=== PATIENT | male | born 1960 | race Caucasian/White ===

== ENCOUNTER 2017-01-25 08:57 | Emergency (ER) | payer MEDICARE ==
--- NOTE | 2017-01-25 09:28 | ERNOTE ---
Head Injury HPI - Narrative Date of Service: 01/25/17 - General Time Seen by Provider: 01/25/17 09:13 Exam Limitations: no limitations - Immun/Allergies/Home Medications Immunization: IMMUNIZATION HX Immunizations Up to Date Yes History of Influenza Vaccine Yes Hx Pneumococcal Vaccination Yes Allergies/Adverse Reactions: Allergies Allergy/AdvReac Type Severity Reaction Status Date / Time latex Allergy Intermediate ANGIOEDEMA Verified 01/25/17 09:06 Penicillins Allergy Mild HIVES, RASH Verified 01/25/17 09:06 Home Medications: HOME MEDICATIONS ALPRAZolam [Xanax] 1 mg PO TID PRN 06/25/12 [Last Taken Unknown] Losartan/Hydrochlorothiazide [Hyzaar 50-12.5 Tablet] 1 each PO DAILY 01/03/15 [ Last Taken 06/05/15 09:00] Omeprazole [Prilosec] 40 mg PO BID 01/03/15 [Last Taken Unknown] Levothyroxine Sodium [Synthroid] 25 mcg PO DAILY 05/30/15 [Last Taken Unknown] Levothyroxine Sodium [Synthroid] 200 mcg PO DAILY 05/30/15 [Last Taken Unknown] PARoxetine HCL [Paxil] 20 mg PO DAILY 05/30/15 [Last Taken Unknown] Baclofen 10 mg PO PRN 04/22/16 [Last Taken Unknown] Atorvastatin Calcium [Lipitor] 40 mg PO HS 01/25/17 [Last Taken Unknown] Ipratropium/Albuterol Sulfate [Iprat-Albut 0.5-3(2.5) mg/3 ml] 3 ml IH TID 01/25 [Last Taken Unknown] - History of Present Illness Narrative: 56-year-old white male presents with swelling on the right side of his neck. 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 I do not have access to those records. He had a reconstructive surgery with a flap on the right side of his trach. Family did take an muscle from his right shoulder region. The surgical scars are all clean dry and intact. This was all proximal 2 years ago. He states he's had swelling to different times in the past couple years it was exactly like this. His associate was some slight pain. No systemic signs of illness. No fever chills. No difficulty swallowing. No difficulty breathing. No drainage. No erythema. Review of Systems - Review of Systems Constitutional: Present: no symptoms reported. Absent: fever, weakness, fatigue , malaise EYE: Present: no symptoms reported ENT: Present: See HPI. Absent: throat swelling Respiratory: Present: no symptoms reported Cardiology: Present: no symptoms reported Genitourinary: Present: no symptoms reported Musculoskeletal: Present: no symptoms reported Skin: Present: no symptoms reported Neurological: Present: no symptoms reported Hematologic/Lymphatic: Present: no symptoms reported All Other Systems: All systems neg except as marked - Patient's Past Medical History Patient History - Medical: Anxiety, Chronic Pain, GERD, Hypothyroidism, Kidney stone, Other Patient History - Cardiac/Respiratory: Hypertension, Hyperlipidemia Patient History - Cancer: Throat, Surgical Treatment Patient History - Surgical Procedures: Back Surgery, Cancer Surgery, Other Patient History - Other: None - Family History Mother Family History - Medical: Diabetes Type 2 Father Family History - Cardiac/Respiratory: Myocardial Infarction - Social History Living Situations: home Abuse History: No History of abuse Psych History: Hx of Anxiety, Hx of Depression, Current tx/ever been on anti- depressants or anti-anxiety meds Smoking Status: Former smoker Alcohol Use: none Drug Use: none - Immunizations Immunizations Up to Date: Yes Hx Pneumococcal Vaccination: Yes History of Influenza Vaccine: Yes Physical Exam - Physical Exam General Appearance: Present: wd/wn, alert, no apparent distress Head Exam: Present: normal inspection, no evidence of injury Neck: Present: supple, full range of motion, other - there is a tracheostomy. There is the flap and reconstructive component of the tracheostomy on the right side. No erythema. No drainage. There is some edema and there is some slight tenderness. I have not seen this patient before. 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 - Vital Signs Patient's Vital Signs:: I have reviewed the patient's vital signs. Vital Signs: Vital Signs 01/25/17 09:01 Temperature 37.1 C Pulse Rate 87 Respiratory 14 Rate Blood Pressure 144/96 O2 Sat by Pulse 96 Oximetry - CT/Ultrasound CT/Ultrasound Narrative: Results of CT neck with IV contrast were reviewed from radiologist reading - Progress/Reassessment Chief Complaint: Neck Pain/Injury Plan - Plan Plan: Patient will be transferred [facility]. I spoke with the emergency room physician Dr. Jackman at 10:50 AM. He is recommending dexamethasone. Dexamethasone Temodar IV given. We discussed possibly giving patient antibiotics. At this time patient is doing well and we will hold off antibiotics in case the specialist may want to obtain culture before antibiotic therapy. I discussed all this with the patient. He verbalizes understanding and agrees. He is refusing ambulance transfer and will drive himself to the [facility] Departure Clinical Impression: Abscess, neck, Tracheostomy in place - Departure Disposition: [facility] Additional Instructions: Patient needs to drive directly to [facility] emergency department. Do not eat or drink any food. Referrals: Ana Jones MD [Primary Care Provider] -
[2017-01-25] MEDS ORDERED: NORMAL SALINE 1,000 ML IV ONE (09:29)
[2017-01-25 09:45] LABS: Hematocrit 44.1 % (42.0-52.0); Hemoglobin 15.5 gm/dL (13.5-18.0); Mean Corpuscular Hemoglobin 30.6 pg (27-31); Mean Corpuscular Hgb Conc 35.1 g/dl (32-36); Mean Platelet Volume 8.6 fl (6.0-9.5); Neutrophil # 6.1 K/mm3 (1.3-6.0); Platelet Count 296 K/mm3 (150-450); Red Blood Count 5.07 M/mm3 (4.7-6.0); Red Cell Distribution Width 13.6 % (11.5-14.0); White Blood Count 9.4 K/mm3 (4.0-10.5)
[2017-01-25 09:57] LABS: Albumin * 3.5 gm/dl (3.4-5.0); Anion Gap 13.5 mmol/L (6.8-13.8); BUN/Creatinine Ratio 11.2 (9.0-21.6); Bilirubin, Total 0.6 mg/dL (0.0-1.1); Ca. Corrected For Albumin 8.6 mg/dL (8.4-10.2); Calcium * 8.5 mg/dL (7.9-10.9); Potassium 3.5 mmol/L (3.4-4.6); Total Protein 8.1 gm/dL (6.2-8.2)
[2017-01-25] MEDS ORDERED: DEXAMETHASONE SOD PHOSPHATE 10 MG/ML VIAL IV ONE (10:53)
[2017-01-25] MEDS ORDERED: DEXAMETHASONE SOD PHOSPHATE 10 MG/ML VIAL ONE (11:03)
[2017-01-25 11:13] VITALS: BP 152/98
== END 2017-01-25 11:09 | disposition short-term general hospital (02) ==
LOC: ER 08:57
DX: L02.11 Cutaneous abscess of neck (principal); Z43.0 Encounter for attention to tracheostomy; F41.8 Other specified anxiety disorders; G89.29 Other chronic pain; K21.9 Gastro-esophageal reflux disease without esophagitis; E03.9 Hypothyroidism, unspecified; I10 Essential (primary) hypertension; E78.5 Hyperlipidemia, unspecified; Z85.89 Personal history of malignant neoplasm of other organs and systems

== ENCOUNTER 2017-05-07 10:39 | Emergency (ER) | payer MEDICARE ==
--- NOTE | 2017-05-07 11:31 | ERNOTE ---
Time Seen by Provider: 05/07/17 11:02 Stated Complaint: COUGH Presenting Symptoms:: cough Source: patient Exam Limitations: no limitations Immunizations: IMMUNIZATION HX Immunizations Up to Date Yes History of Influenza Vaccine Yes Hx Pneumococcal Vaccination Yes Allergies/Adverse Reactions: Allergies latex Allergy (Intermediate, Verified 05/07/17 10:52) ANGIOEDEMA Penicillins Allergy (Mild, Verified 05/07/17 10:52) HIVES, RASH Home Medications: HOME MEDICATIONS ALPRAZolam [Xanax] 1 mg PO TID PRN 06/25/12 [Last Taken Unknown] Losartan/Hydrochlorothiazide [Hyzaar 50-12.5 Tablet] 1 each PO DAILY 01/03/15 [ Last Taken 06/05/15 09:00] Omeprazole [Prilosec] 40 mg PO BID 01/03/15 [Last Taken Unknown] Levothyroxine Sodium [Synthroid] 200 mcg PO DAILY 05/30/15 [Last Taken Unknown] PARoxetine HCL [Paxil] 20 mg PO DAILY 05/30/15 [Last Taken Unknown] Baclofen 10 mg PO PRN 04/22/16 [Last Taken Unknown] Atorvastatin Calcium [Lipitor] 40 mg PO HS 01/25/17 [Last Taken Unknown] Ipratropium/Albuterol Sulfate [Iprat-Albut 0.5-3(2.5) mg/3 ml] 3 ml IH TID 01/25 [Last Taken Unknown] Azithromycin 250 mg PO DAILY #6 tablet 05/07/17 [Last Taken Unknown] - History of Present Ilness Narrative: This patient presents for a 7 day history of cough and congestion. 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 He' s had a productive cough with phlegm with slight amount of blood in it. Any fevers or chills Review of Systems - Review of Systems Constitutional: Present: no symptoms reported EYE: Present: no symptoms reported. Absent: eye pain ENT: Present: nose congestion. Absent: pulling on ears, nose pain, sore throat Respiratory: Present: cough, wheezing - patient reports wheezing at nighttime. . Absent: shortness of breath Cardiology: Present: no symptoms reported Gastrointestinal/Abdominal: Present: no symptoms reported. Absent: nausea, vomiting, diarrhea Genitourinary: Present: no symptoms reported Musculoskeletal: Present: no symptoms reported Skin: Present: no symptoms reported - Patient's Past Medical History Patient History - Medical: Anxiety, Chronic Pain, GERD, Hypothyroidism, Kidney stone, Other Patient History - Cardiac/Respiratory: Hypertension, Hyperlipidemia Patient History - Cancer: Throat, Surgical Treatment Patient History - Surgical Procedures: Back Surgery, Cancer Surgery, Other Patient History - Other: None - Family History Mother Family History - Medical: Diabetes Type 2 Father Family History - Cardiac/Respiratory: Myocardial Infarction - Social History Living Situations: home Abuse History: No History of abuse Psych History: Hx of Anxiety, Hx of Depression, Current tx/ever been on anti- depressants or anti-anxiety meds - Immunizations Immunizations Up to Date: Yes Hx Pneumococcal Vaccination: Yes History of Influenza Vaccine: Yes Physical Exam - Physical Exam General Appearance: Present: wd/wn, alert, no apparent distress Head Exam: Present: normal inspection, no evidence of injury Eye Exam: Normal inspection: bilateral, PERRL: bilateral, EOMI: bilateral Ears, Nose, Throat: Present: normal ENT inspection, normal pharynx Neck: Present: normal inspection, nontender, other - there is a stoma and the patient's anterior neck PO" order to speak it is functioning properly. Area looks clean. Respiratory: Present: no respiratory distress, normal breath sounds, no accessory muscle use, chest nontender - when patient takes a deep breath patient does have some slight end expiratory wheezes, lungs clear Cardiovascular/Chest: Present: regular rate, rhythm, no murmur, normal peripheral pulses Gastrointestinal/Abdominal: Present: normal bowel sounds, nontender, nondistended, soft, no organomegaly Back Exam: Present: normal inspection, normal range of motion, no CVA tenderness , no vertebral tenderness Extremity Exam: Present: normal inspection, normal range of motion, no edema ED Progress - Results and Orders Patient's Lab Results:: I have reviewed the patient's lab results. - Vital Signs Patient's Vital Signs:: I have reviewed the patient's vital signs. Vital Signs: Vital Signs 05/07/17 10:48 Temperature 36.3 C L Pulse Rate 95 Respiratory 14 Rate Blood Pressure 159/119 O2 Sat by Pulse 96 Oximetry - X-Ray X-Ray #1 X-Ray: chest - Progress/Reassessment Chief Complaint: Upper Respiratory Symptoms Plan - Plan Plan: This patient does not have any consolidations on x-ray however his symptoms of cough and wheezing mostly at nighttime are mostly consistent with a bronchitis. At this time this examiner will choose diagnosis and treatment the patient with bronchitis and with the pack respectively. I also offered the patient beta -2 agonist inhalers however he stated "I have all my breathing stuff at home" he refuses any refills on those. Departure Clinical Impression: Bronchitis - Departure Disposition: Home self-care Condition: Good Instructions: Bronchospasm, Adult, Acute Bronchitis, [id number] Referrals: Ana Jones MD [Primary Care Provider] - Prescriptions: Azithromycin 250 mg PO DAILY #6 tablet
[2017-05-07 11:48] LABS: Hematocrit 44.6 % (42.0-52.0); Hemoglobin 15.7 gm/dL (13.5-18.0); Mean Corpuscular Hemoglobin 31.3 pg (27-31); Mean Corpuscular Hgb Conc 35.2 g/dl (32-36); Mean Platelet Volume 8.8 fl (6.0-9.5); Neutrophil # 5.4 K/mm3 (1.3-6.0); Neutrophil % 69.1 % (42-75.0); Platelet Count 300 K/mm3 (150-450); Red Blood Count 5.01 M/mm3 (4.7-6.0); Red Cell Distribution Width 13.5 % (11.5-14.0); White Blood Count 7.8 K/mm3 (4.0-10.5)
[2017-05-07 12:21] VITALS: BP 162/90
== END 2017-05-07 12:30 | disposition home or self-care (01) ==
LOC: ER 10:39
DX: J40 Bronchitis, not specified as acute or chronic (principal); E03.9 Hypothyroidism, unspecified; K21.9 Gastro-esophageal reflux disease without esophagitis; I10 Essential (primary) hypertension; E78.5 Hyperlipidemia, unspecified; F41.8 Other specified anxiety disorders